=== PATIENT | female | born 1945 | race Caucasian/White ===

== ENCOUNTER 2016-05-14 06:19 | Inpatient (IN) | payer MEDICARE ==
[2016-05-13 09:12] VITALS: BP 132/78
[~2016-05-14] VITALS: Ht 162.6 cm; Wt 80.2 kg
[~2016-05-14 06:19] MED LIST: ALEN70TA5 PO; CELE200C PO; CHOL200024 PO; HYDR2TAB13 PO; MELO-184 PO; MULT-26 PO; OMEP40CA6 PO; OXYC-302 PO; PARO10TA24 PO; SIMV20TA PO; SIMV40TA3 PO; SUVO15TA PO; ZOLP5TAB6 PO
[2016-05-14] MEDS ORDERED: LACTATED RINGERS 1,000 ML IV SCH (07:45)
[2016-05-14] MEDS ORDERED: BUPIVACAINE/PF-EPI 0.25% 1:200K ONE (07:47)
[2016-05-14] MEDS ORDERED: LIDOCAINE 1%, 2ML SQ PRN (08:00)
[2016-05-14] MEDS ORDERED: MIDAZOLAM 1 MG/ML, 2ML ONE (08:21)
[2016-05-14] MEDS ORDERED: FENTANYL PF 250 MCG/5ML ONE (08:21)
[2016-05-14] MEDS ORDERED: CEFAZOLIN 1,000 MG ONE (08:24)
[2016-05-14] MEDS ORDERED: ROCURONIUM 10 MG/ML ONE (08:24)
[2016-05-14] MEDS ORDERED: DEXAMETHASONE 4 MG/ML, 1ML ONE (08:24)
[2016-05-14] MEDS ORDERED: GLYCOPYRROLATE 0.2MG/1ML ONE (08:24)
[2016-05-14] MEDS ORDERED: NEOSTIGMINE 1 MG/ML, 10ML ONE (08:24)
[2016-05-14] MEDS ORDERED: ONDANSETRON 2MG/ML, 2ML ONE (08:24)
[2016-05-14] MEDS ORDERED: PROPOFOL 10 MG/ML, 20ML ONE (08:24)
[2016-05-14] MEDS ORDERED: SUCCINYLCHOLINE 20 MG/ML, 10ML ONE (08:24)
[2016-05-14] MEDS ORDERED: BUPIVACAINE/PF-EPI 0.25% 1:200K INFIL ONE (08:44)
[2016-05-14] MEDS ORDERED: HYDROmorphone 1 MG/ML, 1ML ONE (08:58)
[2016-05-14] MEDS: FENTANYL PF 100 MCG/2ML IV PRN ×4 (10:18→10:45)
[2016-05-14] MEDS ORDERED: FENTANYL PF 100 MCG/2ML ONE (10:26)
[2016-05-14] MEDS ORDERED: OXYcodone 5 MG/5 ML ORAL.SOL UDC ONE (10:27)
[2016-05-14] MEDS ORDERED: ONDANSETRON 2MG/ML, 2ML IVPush PRN ×2 (10:30→11:00)
[2016-05-14] MEDS: OXYcodone 5 MG/5 ML ORAL.SOL UDC PO PRN ×3 (10:30→18:37)
[2016-05-14] MEDS ORDERED: DIPHENHYDRAMINE 25 MG CAPSULE PO PRN (10:30)
[2016-05-14] MEDS ORDERED: HYDROmorphone 1 MG/ML, 1ML IV PRN (10:30)
[2016-05-14] MEDS ORDERED: LORazepam 2 MG/ML, 1ML IV PRN (10:30)
[2016-05-14] MEDS ORDERED: HYDROmorphone 2 MG/ML, 1ML ONE (10:50)
[2016-05-14] MEDS: HYDROmorphone 1 MG/ML, 1ML IV PRN ×6 (10:52→11:41)
[2016-05-14] MEDS ORDERED: OXYcodone 5 MG/5 ML ORAL.SOL UDC PO PRN (11:00)
[2016-05-14] MEDS ORDERED: MIDAZOLAM 1 MG/ML, 2ML IV PRN (11:00)
[2016-05-14] MEDS ORDERED: ACETAMINOPHEN 325 MG TABLET PO PRN (11:00)
[2016-05-14] MEDS ORDERED: ALBUTEROL SULFATE 2.5 MG/3 ML ONE (11:14)
[2016-05-14] MEDS ORDERED: ALBUTEROL SULFATE 2.5 MG/3 ML NPPB PRN (11:30)
[2016-05-14] MEDS: LACTATED RINGERS 1,000 ML IV SCH ×2 (13:02→23:23)
[2016-05-14 16:05] VITALS: BP 145/80
[2016-05-14] MEDS ORDERED: SODIUM CHLORIDE 0.9%, 500ML IVBOLUS ONE (18:30)
[2016-05-14] MEDS ORDERED: SODIUM CHLORIDE 0.9%, 500ML IVBOLUS PRN (19:00)
[2016-05-14 20:11] VITALS: BP 149/87
[2016-05-14] MEDS: CEFOTETAN PMX 1GM/50ML 50 ML IVPB SCH (21:33)
[2016-05-14] MEDS: SIMVASTATIN 40 MG TABLET PO SCH (21:33)
[2016-05-15 02:22] VITALS: BP 153/87
[2016-05-15 05:33] LABS: HEMOGLOBIN 12.2 g/dL (11.7-16.4)
[2016-05-15 05:43] LABS: BLOOD UREA NITROGEN 10 mg/dL (7-18)
[2016-05-15] MEDS ORDERED: ALENDRONATE 70 MG TABLET PO SCH (06:30)
[2016-05-15 06:50] VITALS: BP 156/92
[2016-05-15] MEDS: PAROXETINE 20 MG TABLET PO SCH (08:29)
[2016-05-15] MEDS: ENOXAPARIN 30 MG/0.3 ML SQ SCH ×2 (08:30→20:06)
[2016-05-15] MEDS: OMEPRAZOLE 20 MG CAPSULE.DR PO SCH (08:30)
[2016-05-15] MEDS: CEFOTETAN PMX 1GM/50ML 50 ML IVPB SCH (08:30)
[2016-05-15] MEDS ORDERED: LACTATED RINGERS 1,000 ML IV SCH (10:03)
[2016-05-15] MEDS: MAGNESIUM HYDROXIDE 8%, 30ML UDC PO SCH (10:12)
[2016-05-15] MEDS: DOCUSATE 100 MG CAPSULE PO SCH ×2 (10:12→20:06)
[2016-05-15 12:45] VITALS: BP 141/82
[2016-05-15] MEDS: SIMVASTATIN 40 MG TABLET PO SCH (20:07)
[2016-05-15 20:24] VITALS: BP 144/88
[2016-05-16 02:36] VITALS: BP 141/84
[2016-05-16 07:54] VITALS: BP 137/85
[2016-05-16] MEDS: PAROXETINE 20 MG TABLET PO SCH (09:02)
[2016-05-16] MEDS: ENOXAPARIN 30 MG/0.3 ML SQ SCH ×2 (09:02→22:21)
[2016-05-16] MEDS: MAGNESIUM HYDROXIDE 8%, 30ML UDC PO SCH (09:02)
[2016-05-16] MEDS: DOCUSATE 100 MG CAPSULE PO SCH ×2 (09:02→22:21)
[2016-05-16] MEDS: OMEPRAZOLE 20 MG CAPSULE.DR PO SCH (09:02)
[2016-05-16 14:21] VITALS: BP 122/69
[2016-05-16] MEDS: OXYcodone 5 MG/5 ML ORAL.SOL UDC PO PRN ×2 (18:21→22:21)
[2016-05-16 19:02] VITALS: BP 135/81
[2016-05-16] MEDS: SIMVASTATIN 40 MG TABLET PO SCH (22:21)
[2016-05-17 03:34] VITALS: BP 123/77
[2016-05-17 07:34] VITALS: BP 135/79
[2016-05-17] MEDS: PAROXETINE 20 MG TABLET PO SCH (08:39)
[2016-05-17] MEDS: ENOXAPARIN 30 MG/0.3 ML SQ SCH (08:39)
[2016-05-17] MEDS: OMEPRAZOLE 20 MG CAPSULE.DR PO SCH (08:39)
[2016-05-17] MEDS: DOCUSATE 100 MG CAPSULE PO SCH (08:40)
[2016-05-17] MEDS: MAGNESIUM HYDROXIDE 8%, 30ML UDC PO SCH (08:41)
[2016-05-17] MEDS: OXYcodone 5 MG/5 ML ORAL.SOL UDC PO PRN (08:45)
[2016-05-17] MEDS ORDERED: OXYC5CAP4 PO (10:17)
[2016-05-17] MEDS ORDERED: PROM25SU34 PO (10:18)
[2016-05-17 13:06] VITALS: BP 125/67
== END 2016-05-17 13:11 | disposition home or self-care (01) | DRG 336 ==
LOC: OUT 06:19 → ORIP 10:03 → 4NOR 12:16
PROVIDERS: ADMIT Surgery; ATTEND Surgery
PROC: 0DNK0ZZ Release Ascending Colon, Open Approach (ICD-10-PCS; 2016-05-14)
PROC: 0WJJ4ZZ Inspection of Pelvic Cavity, Percutaneous Endoscopic Approach (ICD-10-PCS; 2016-05-14)
PROC: 0KUK0KZ Supplement Right Abdomen Muscle with Nonautologous Tissue Substitute, Open Approach (ICD-10-PCS; 2016-05-14)
PROC: 8E0W8CZ Robotic Assisted Procedure of Trunk Region, Via Natural or Artificial Opening Endoscopic (ICD-10-PCS; 2016-05-14)
PROC: 0QN Lower Bones, Release (ICD-10-PCS; 2016-05-14)
PROC: 0WUF0JZ Supplement Abdominal Wall with Synthetic Substitute, Open Approach (ICD-10-PCS; principal; 2016-05-14 08:30)
DX: K43.2 Incisional hernia without obstruction or gangrene (principal); K63.2 Fistula of intestine; K57.80 Diverticulitis of intestine, part unspecified, with perforation and abscess without bleeding; N73.6 Female pelvic peritoneal adhesions (postinfective); M85.80 Other specified disorders of bone density and structure, unspecified site; K21.9 Gastro-esophageal reflux disease without esophagitis; F32.9 Major depressive disorder, single episode, unspecified; E78.5 Hyperlipidemia, unspecified; Z91.041 Radiographic dye allergy status
CPT/HCPCS: 36415; 80048; 82040; 85025; 93005; 94640; J0690; J1100; J1170; J1650; J2250; J2405; J2704; J2710; J3010; J3490; C1765; C1781; J0330; J7040; J7120; S0074

== ENCOUNTER → 2016-08-15 | Outpatient (CLI) | payer MEDICARE ==
[~2016-08-15] MED LIST changes: -HYDR2TAB13 PO; +HYDR2TAB29 PO; +MULT-516 PO; +OXYC5CAP4 PO; +PROM25SU34 PO
== END | disposition home or self-care (01) ==
LOC: STAR 10:30
PROVIDERS: ATTEND Surgery
DX: Z01.818 Encounter for other preprocedural examination (principal); T81.89XD Other complications of procedures, not elsewhere classified, subsequent encounter
CPT/HCPCS: 93005

== ENCOUNTER 2016-08-21 07:24 | Day surgery (SDC) | payer MEDICARE ==
[~2016-08-21] VITALS: Ht 162.6 cm; Wt 71.0 kg
[2016-08-21 08:09] VITALS: BP 154/92
[2016-08-21] MEDS ORDERED: LACTATED RINGERS 1,000 ML IV SCH (08:13)
[2016-08-21] MEDS ORDERED: MIDAZOLAM 1 MG/ML, 2ML ONE (09:01)
[2016-08-21] MEDS ORDERED: FENTANYL PF 250 MCG/5ML ONE (09:01)
[2016-08-21] MEDS ORDERED: DEXAMETHASONE 4 MG/ML, 1ML ONE (09:02)
[2016-08-21] MEDS ORDERED: CEFAZOLIN 1,000 MG ONE (09:02)
[2016-08-21] MEDS ORDERED: SUCCINYLCHOLINE 20 MG/ML, 10ML ONE (09:02)
[2016-08-21] MEDS ORDERED: GLYCOPYRROLATE 0.2MG/1ML ONE (09:02)
[2016-08-21] MEDS ORDERED: ONDANSETRON 2MG/ML, 2ML ONE (09:02)
[2016-08-21] MEDS ORDERED: PROPOFOL 10 MG/ML, 20ML ONE (09:02)
[2016-08-21] MEDS ORDERED: BUPIVACAINE/PF-EPI 0.5% 1:200K ONE (09:17)
[2016-08-21] MEDS ORDERED: PROMETHAZINE 25 MG/ML, 1ML IV PRN (09:30)
[2016-08-21] MEDS ORDERED: OXYcodone 5 MG/5 ML ORAL.SOL UDC PO PRN (10:00)
[2016-08-21] MEDS ORDERED: HYDROmorphone 2 MG/ML, 1ML IVPush PRN (10:00)
[2016-08-21] MEDS ORDERED: FENTANYL PF 100 MCG/2ML ONE (10:04)
[2016-08-21] MEDS ORDERED: ACETAMINOPHEN 650 MG/20.3 ML UDC ONE (10:04)
[2016-08-21] MEDS ORDERED: OXYcodone 5 MG/5 ML ORAL.SOL UDC ONE ×2 (10:04→10:29)
[2016-08-21] MEDS: OXYcodone 5 MG/5 ML ORAL.SOL UDC PO PRN ×2 (10:06→10:30)
[2016-08-21] MEDS: FENTANYL PF 100 MCG/2ML IV PRN ×2 (10:06→10:30)
[2016-08-21] MEDS: ACETAMINOPHEN 325 MG TABLET PO PRN ×2 (10:06→10:30)
[2016-08-21] MEDS ORDERED: ACETAMINOPHEN 325 MG/10.15 ML UDC ONE (10:29)
== END 2016-08-21 13:15 ==
LOC: OUT 07:24
PROVIDERS: ATTEND Surgery
DX: T81.4XXA Infection following a procedure, initial encounter (principal); Y83.9 Surgical procedure, unspecified as the cause of abnormal reaction of the patient, or of later complication, without mention of misadventure at the time of the procedure; Y92.9 Unspecified place or not applicable; I10 Essential (primary) hypertension; K21.9 Gastro-esophageal reflux disease without esophagitis; Z87.39 Personal history of other diseases of the musculoskeletal system and connective tissue; Z98.890 Other specified postprocedural states
CPT/HCPCS: 13160; 88304; J0330; J0690; J1100; J2405; J2704; J3010; J7120; J3490

== ENCOUNTER → 2016-11-18 | Outpatient (CLI) | payer MEDICARE ==
[~2016-11-18] MED LIST changes: -MELO-184 PO; +MELO15TA24 PO; +OXYC5CAP2 PO; -OXYC5CAP4 PO; -PARO10TA24 PO; +PARO10TA56 PO
== END | disposition home or self-care (01) ==
LOC: CFH 08:44
PROVIDERS: ATTEND Family Medicine
DX: Z13.820 Encounter for screening for osteoporosis (principal); M81.0 Age-related osteoporosis without current pathological fracture; N95.9 Unspecified menopausal and perimenopausal disorder
CPT/HCPCS: 77080

== ENCOUNTER → 2017-01-21 | Outpatient (CLI) | payer MEDICARE | END | disposition home or self-care (01) | LOC: CFH 08:58 | PROVIDERS: ATTEND Family Medicine | DX: Z12.31 Encounter for screening mammogram for malignant neoplasm of breast (principal) | CPT/HCPCS: 77063; G0202 ==

== ENCOUNTER → 2017-03-16 | Outpatient (CLI) | payer MEDICARE | END | disposition home or self-care (01) | LOC: CFH 11:41 | PROVIDERS: ATTEND Family Medicine | DX: M19.041 Primary osteoarthritis, right hand (principal); G89.29 Other chronic pain ==

== ENCOUNTER → 2017-06-30 | Outpatient (CLI) | payer MEDICARE | END | disposition home or self-care (01) | LOC: CFH 13:17 | PROVIDERS: ATTEND Family Medicine | DX: G31.89 Other specified degenerative diseases of nervous system (principal); Q28.3 Other malformations of cerebral vessels | CPT/HCPCS: 70553; 82565 ==

== ENCOUNTER → 2018-01-13 | Outpatient (CLI) | payer MEDICARE | END | disposition home or self-care (01) | LOC: CFH 12:30 | PROVIDERS: ATTEND Family Medicine | DX: M75.101 Unspecified rotator cuff tear or rupture of right shoulder, not specified as traumatic (principal); M75.51 Bursitis of right shoulder; M19.011 Primary osteoarthritis, right shoulder; M48.02 Spinal stenosis, cervical region | CPT/HCPCS: 72141 ==

== ENCOUNTER → 2018-02-24 | Outpatient (CLI) | payer MEDICARE | END | disposition home or self-care (01) | LOC: CFH 10:39 | PROVIDERS: ATTEND Family Medicine | DX: Z12.31 Encounter for screening mammogram for malignant neoplasm of breast (principal) | CPT/HCPCS: 77067 ==

== ENCOUNTER → 2018-03-24 | Outpatient (CLI) | payer MEDICARE ==
[~2018-03-24] MED LIST changes: -ALEN70TA5 PO; +ALEN70TA6 PO
== END | disposition home or self-care (01) ==
LOC: CFH 11:42
PROVIDERS: ATTEND Family Medicine
DX: M47.817 Spondylosis without myelopathy or radiculopathy, lumbosacral region (principal); M16.0 Bilateral primary osteoarthritis of hip; M48.07 Spinal stenosis, lumbosacral region; M25.752 Osteophyte, left hip; M25.751 Osteophyte, right hip; M25.78 Osteophyte, vertebrae
CPT/HCPCS: 72100; 73523

== ENCOUNTER 2018-12-27 13:47 | Outpatient (CLI) | payer MEDICARE ==
[~2018-12-27 13:47] MED LIST changes: +OMEP40CA42 PO; -OMEP40CA6 PO
== END 2018-12-27 23:59 | disposition home or self-care (01) ==
LOC: CFH 13:47
DX: M25.561 Pain in right knee (principal); Z87.891 Personal history of nicotine dependence

== ENCOUNTER → 2019-03-29 | Outpatient (CLI) | payer MEDICARE ==
[~2019-03-29] MED LIST changes: +SIMV40TA20 PO; -SIMV40TA3 PO
== END | disposition home or self-care (01) ==
LOC: CFH 14:30
PROVIDERS: ATTEND Family Medicine
DX: R92.1 Mammographic calcification found on diagnostic imaging of breast (principal); N60.01 Solitary cyst of right breast; N64.89 Other specified disorders of breast
CPT/HCPCS: 76642; 77066; G0279

== ENCOUNTER → 2020-06-21 | Outpatient (CLI) | payer MEDICARE ==
[~2020-06-21] MED LIST changes: -ALEN70TA6 PO; +ALEN70TA77 PO; -OXYC-302 PO; +OXYC1TAB14 PO
== END | disposition home or self-care (01) ==
LOC: CVU 06:36
PROVIDERS: ATTEND Internal Medicine Cardiovascular Disease
DX: Z13.6 Encounter for screening for cardiovascular disorders (principal); R07.89 Other chest pain; R42 Dizziness and giddiness; E78.2 Mixed hyperlipidemia; I35.8 Other nonrheumatic aortic valve disorders; I25.10 Atherosclerotic heart disease of native coronary artery without angina pectoris
CPT/HCPCS: 75571; 93306; 93356